=== PATIENT | female | born 1970 | race Caucasian/White ===

== ENCOUNTER 2016-12-13 11:24 | Day surgery (SDC) | payer BC ==
[2016-12-10 12:54] LABS: HEMATOCRIT 40.1 % (36.0-48.0); HEMOGLOBIN 13.8 g/dL (12.0-16.0)
--- NOTE | ~2016-12-13 | OP ---
Record Of Operation [facility] [address] [place]. [address] NAME: HERO ROCA : 72 STATUS : REG [facility] PAT#: [id number] AGE: 46 ADM/REG DATE : 12/13/16 MR#: [id number] REPORT SERV DATE: 12/13/16 DICTATED BY: GOLDEN CARROLL DATE: 12/13/16 REPORT STATUS : Draft TRANSCRIBED BY: MODL DATE: 12/13/16 DATE OF PROCEDURE: 12/13/2016 PROCEDURE: Microdirect laryngoscopy with removal of Adriane edema. PREOPERATIVE DIAGNOSIS: 1. Chronic hoarseness. 2. Leukoplakia of bilateral true vocal cords. POSTOPERATIVE DIAGNOSIS: 1. Chronic hoarseness. 2. Leukoplakia of bilateral true vocal cords. SURGEON: Dr. Golden Poole. ANESTHESIA: General endotracheal. COMPLICATION: None. FINDINGS: As follows: The patient was taken to the OR and placed in a supine position. She then was anesthetized, prepped and draped in a standard fashion. Larynx was suspended with laryngoscope. Microscope was brought into view. The patient had bilateral Adriane edema, worse in the right true vocal cord compared to the left. An incision was made lateral to the leading edge of both vocal cords with the CO2 laser. A [employer] blade was used to debulk the majority of the Adriane edema. CO2 laser was used for more complete removal and for hemostasis. [employer] Leader was used to remove part of the more leading edge mucosa that had leukoplakia on the left true vocal cord. A small area on the right as well. Anteriorly, the vocal cords were not denuded. Anterior commissure had some polypoid tissue that was removed with a [employer] blade. The patient was awakened, extubated, and taken to the recovery room in good condition. ELI/BRIA Golden Carroll M.D. / [id number] CC: Golden Carroll M.D.
[~2016-12-13 11:24] MED LIST: AZO STANDARD PO; CALTRAT600 PO; DEPAKOT500 PO; DOLOPHINE10 MG PO; FLOMAX4 PO; METHADONE; NORCO1 TA1 PO; NORCO1 TA2 PO; PCET PO; PR25 PO; TRAZ50 PO; V5 PO; XANAX1 MG PO
== END 2016-12-13 21:37 | disposition home or self-care (01) ==
LOC: SDC 11:24
PROVIDERS: Otolaryngology
PROC: 0CBV8ZZ Excision of Left Vocal Cord, Via Natural or Artificial Opening Endoscopic (ICD-10-PCS; 2016-12-13)
PROC: 0CBT8ZZ Excision of Right Vocal Cord, Via Natural or Artificial Opening Endoscopic (ICD-10-PCS; principal; 2016-12-13 12:45)
DX: R49.0 Dysphonia (principal); J38.3 Other diseases of vocal cords; F17.210 Nicotine dependence, cigarettes, uncomplicated; E89.0 Postprocedural hypothyroidism; Z87.442 Personal history of urinary calculi; F31.9 Bipolar disorder, unspecified; Z88.5 Allergy status to narcotic agent; Z88.6 Allergy status to analgesic agent; Z88.8 Allergy status to other drugs, medicaments and biological substances; Z90.710 Acquired absence of both cervix and uterus; Z98.890 Other specified postprocedural states
CPT/HCPCS: 85014; 85018; 88305; 88312; 88342; A9270-GY; J0330; J1170; J2250; J2405; J3010